=== PATIENT | female | born 2000 | race Caucasian/White ===

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

== ENCOUNTER 2023-12-31 15:31 | Outpatient (REF) | payer MEDICAID, SELFPAY ==
[2024-01-01 04:23] LABS: HIV AB/AG Nonreactive (Nonreactive); HIV Num 1 0.05 S/CO (0.00-0.99); ~Hepatitis C Antibody Nonreactive (Nonreactive)
[2024-01-03 22:29] LABS: RPR Rapid Plasma Reagin NON-REACTIVE (NON-REACTIVE)
== END 2023-12-31 15:32 | disposition home or self-care (01) ==
LOC: HO.HHCL 15:31
PROVIDERS: Visit Provider Student in an Organized Health Care Education/Training Program
DX: Z20.2 Contact with and (suspected) exposure to infections with a predominantly sexual mode of transmission (principal)
CPT/HCPCS: 36415; 86592; 86803; 87389

== ENCOUNTER 2024-01-18 16:21 | Outpatient (REF) | payer MEDICAID, SELFPAY ==
[2024-01-18 18:55] LABS: TSH reflex Free T4 1.55 uIU/mL (0.32-4.0)
== END 2024-01-18 16:22 | disposition home or self-care (01) ==
LOC: HO.HHCL 16:21
PROVIDERS: Visit Provider Nurse Practitioner Family
DX: E03.8 Other specified hypothyroidism (principal)
CPT/HCPCS: 36415; 84443

== ENCOUNTER 2024-02-06 16:33 | Outpatient (REF) | payer MEDICAID, SELFPAY ==
[2024-02-07 01:56] LABS: CT PCR DETECTED (Not Detect.); NG PCR NOT DETECTED (Not Detect.)
[2024-02-07 10:02] LABS: Bacterial Vaginosis PCR POSITIVE (Negative); Candida Group PCR DETECTED (Not Detect); Candida glab krusei PCR NOT DETECTED (Not Detect); Trichomonas vaginalis PCR NOT DETECTED (Not Detect)
== END 2024-02-06 16:34 | disposition home or self-care (01) ==
LOC: HO.HHCLNP 16:33
PROVIDERS: Visit Provider Internal Medicine
DX: R10.9 Unspecified abdominal pain (principal)
CPT/HCPCS: 0352U; 87491; 87591

== ENCOUNTER 2024-02-20 20:38 | Emergency (ER) | payer MEDICAID, SELFPAY ==
--- NOTE | ~2024-02-20 | US_ITS ---
EXAMINATION: US OBSTETRICAL ULTRASOUND CLINICAL INFORMATION: 1.5 month . Pain. COMPARISON: None available. TECHNIQUE: Transabdominal grayscale, and M-mode interrogation of the pelvis. FINDINGS: A single intrauterine gestation is identified. No subchorionic fluid collections noted. The gestational sac, yolk sac and pole are identified. M-mode interrogation demonstrates heart rate of 156 bpm. [place]-rump length measurement is 0.96 cm (7 week 1 day). The left ovary measures 2.1 cm x 1.8 cm x 1.5 cm and is normal in appearance. The right ovary measures 3.27 x 2.0 cm x 1.8 cm and is normal in appearance on grayscale sonographic evaluation. No suspicious free intraperitoneal fluid collections noted. US/US OB <= 14 weeks fetus IMPRESSION: Single live intrauterine gestation. Sonographic estimated gestational age 7 week 1 day. DAVID 10/08/2024. Electronically signed by: Zana Gerber MD 02/21/2024 03:42 AM MICHAEL
[2024-02-20 20:45] VITALS: BP 103/59; PULSE 80; O2SAT 100
[2024-02-20 21:44] VITALS: BP 111/48; PULSE 96; RESP 18; TEMP 37.2; O2SAT 97; BMI 19.0
[2024-02-20 22:12] LABS: MANUAL DIFF FLAG NO
[2024-02-20 22:13] LABS: Basophils Percent Auto 0.4 % (0-2); Eosinophils Absolute Auto 0.1 X10*3/uL (0.0-0.4); Eosinophils Percent Auto 1.5 % (0-4); Hematocrit 33.9 % (37.0-47.0); Hemoglobin 11.9 g/dl (12.0-16.0); Imm Gran Abs Auto 0.02 X10*3/uL (0.00-0.03); Imm Gran Pct Auto 0.3 % (0.0-0.4); Lymphocytes Absolute Auto 2.1 X10*3/uL (1.2-4.9); Lymphocytes Percent Auto 28.1 % (20-40); Mean Corpuscular HGB Conc 35.1 g/dl (31.0-35.0); Mean Corpuscular Hemoglobin 30.4 pg (27.0-33.0); Mean Corpuscular Volume 86.7 fL (80.0-98.0); Mean Platelet Volume 9.7 fL (9.4-12.3); Monocytes Absolute Auto 0.7 X10*3/uL (0.1-1.2); Monocytes Percent Auto 9.4 % (2-11); Neutrophils Absolute Auto 4.5 x10*3/uL (2.0-8.3); Neutrophils Percent Auto 60.3 % (45-73); Platelet Count 204 X10*3/uL (160-400); Red Blood Count 3.91 X10*6/uL (4.20-5.50); Red Cell Distribution Width 12.4 % (11.0-16.0); White Blood Count 7.4 X10*3/uL (4.8-10.8)
[2024-02-20 22:36] LABS: Alanine Aminotransferase 9 U/L (0-31); Albumin Level 4.2 g/dL (3.5-5.0); Alkaline Phosphatase 57 U/L (39-117); Anion Gap 11 (12-20); Aspartate Amino Transferase 25 U/L (5-31); Bilirubin Total 0.2 mg/dL (0.0-1.0); Blood Urea Nitrogen 6 mg/dL (9-16); Calcium 9.9 mg/dL (8.4-10.2); Carbon Dioxide 27 mmol/L (22-29); Chloride 105 mmol/L (96-108); Creatinine Clr Calc Pharmacy 104.3; Estimated Glomerular Filt Rate > 60; Glucose Random 98 mg/dL (60-115); Potassium 3.8 mmol/L (3.3-5.1); Sodium 139 mmol/L (135-145)
[2024-02-20 22:52] LABS: HCG Quantitative 90445 mIU/mL
[2024-02-21 00:31] VITALS: BP 113/61; PULSE 77; RESP 16; TEMP 36.9; O2SAT 100
--- NOTE | 2024-02-21 00:56 | PC.NURSE ---
foreign language interpreter at bedside. pt a&ox4, respirations even and unlabored. pt reporting she is 1 month and is requesting an , pt states she does not want this baby. at this time pt is also reporting she would like help , pt states she is depressed and would like to speak to care team for help with the depression. pt denies si/hi at this time.
--- NOTE | 2024-02-21 01:33 | ED_ITS ---
HPI - General Adult General Chief complaint: General Medical Stated complaint: anxiety Time Seen by Provider: 02/21/24 00:55 Source: patient, old records reviewed and interpreter for the deaf Mode of arrival: EMS Limitations: no limitations History of Present Illness ED Provider: BELEM ERICKSON narrative: 23 yo female states she is 1.5 months but plans to terminate is here with multiple vague symptoms such as anxiety, dyspnea, fatigue, hot flashes and some lower abdominal pain but no syncope, no SI, no bleeding. She states she is in crisis cannot sleep due to anxiety. She states she takes benadryl but it does not help. She states she needs therapy SRIKANTH. complaint: crisis, anxiety, abdominal pain, dyspnea Onset (ago): week(s) (1) Location: abdomen Radiation: non-radiation Severity: mild Quality: aching Pain Consistency: intermittent Relieving factors: none Exacerbating factors: none Associated symptoms: other (anxiety, depression, fatigue, hot flashes) Treatments prior to arrival: none Related Data Previous Rx's ?Medication ?Instructions ?Recorded acetaminophen 325 mg tablet 650 mg (2 x 325 mg) PO Q6H PRN 06/15/20 Headache/Pain Mild Scale (1-3) #60 tabs benztropine 1 mg tablet 1 mg PO BID PRN Extrapyramidal 06/15/20 Effects #60 tabs ibuprofen 400 mg tablet 400 mg PO Q12H PRN pain #60 tabs 06/15/20 lamotrigine 100 mg tablet 100 mg PO BEDTIME #30 tabs 06/15/20 levothyroxine 25 mcg tablet 25 mcg PO DAILY #30 tabs 06/15/20 lorazepam 1 mg tablet 1 mg PO BID PRN Anxiety #60 tabs 06/15/20 melatonin 3 mg tablet 3 mg PO BEDTIME PRN Sleep #30 tabs 06/15/20 multivitamin with folic acid 400 1 tab PO DAILY #30 tabs 06/15/20 mcg tablet (Tab-A-Breann) nicotine (polacrilex) 2 mg gum 4 mg buccal Q2H PRN Nicotine 06/15/20 Cravings #60 ea trazodone 50 mg tablet 50 mg PO BEDTIME PRN Insomnia #30 06/15/20 tabs aripiprazole lauroxil 441 mg/1.6 441 mg (1.6 mL) IM QMONTH #1.6 mL 07/14/20 mL suspension, ext.rel. IM syringe (Aristada) Allergies Allergy/AdvReac Type Severity Reaction Status Date / Time haloperidol [From Haldol] AdvReac Severe dystonia Verified 02/20/24 22:01 Review of Systems 2 Review of Systems: Constitutional : No Weight loss, No Fever, No Chills ENT/Mouth : No sore throat Eyes: No Swelling, No Redness Cardiovascular : No Chest Pain, No SOB, NoEdema Respiratory : No Cough, No Sputum, No Wheezing Gastrointestinal : no Nausea, no Vomiting, no Diarrhea, positive abdominal Pain, No Hematochezia, No Melena Genitourinary : No Dysuria, No Urinary Frequency, No Hematuria, No Urgency , no bleeding Musculoskeletal : No joint pain, No Myalgias, No Joint Swelling Skin : No Skin Lesions, No rash Neuro : No Weakness, No Numbness, No Dizziness, No Headache Psych : pos Anxiety/Panic, pos Depression All other systems reviewed and are negative. [facility] Past Medical History Attestation statement: The following information was validated with the patient. Source: old records reviewed Medical History PTSD (post-traumatic stress disorder) Schizoaffective disorder Hypothyroidism Severe bipolar disorder with psychotic features, mood-congruent Noncompliance w/medication treatment due to intermit use of medication Cannabis abuse with psychotic disorder Social History Social History Household Members: Family and None Housing: Homeless Do you presently have visiting nurse or other home services: No Unable to assess alcohol history related to: Unknown Alcohol intake: never Comment: Pt reports had bowel movement Cigarette Packs Per Day: 0.5 Cigarettes Per Day: 10.0 Years Smoked: unable to identify Smoked in Last 30 Days: No Second Hand Smoke Exposure: Yes Use of substances other than those prescribed or required for medical reasons: No Substance Use Type: Marijuana Advance Directives: No Advance Directives Information Provided: Yes Do you have a plan to hurt others: No Plan Patient : Yes service: No Sexual orientation: Straight/Heterosexual Physical Exam ED Vital Signs: Vital Signs - 24 hr 02/20/24 21:44 02/21/24 00:31 Temperature 99.0 F 98.4 F Pulse Rate 96 77 Respiratory Rate 18 16 Blood Pressure 111/48 L 113/61 Pulse Oximetry 97 100 Oxygen Delivery Method Room Air Room Air BMI result Body Mass Index 19.0 Appearance: Alert. Oriented X3. No acute distress. Eyes: Pupils equal, round and reactive to light. ENT: Pharynx normal. Neck: Normal inspection. Neck supple. CVS: Normal heart rate and rhythm. Pulses normal. Respiratory: No respiratory distress. Breath sounds normal. Abdomen: Soft and nontender. Abdomen seems more gravid than 1.5months Skin: Skin warm and dry. Normal skin color. Normal skin turgor. Extremities: No lower extremity edema. No calf ttp Neuro: Oriented X 3. No motor deficit. No sensory deficit. Medical Decision Making Medical Decision Making [facility] Narrative: 23 yo female with PMH of anxiety/depression here asking for crisis due to severe anxiety and needs therapy she also c/o fatigue, COUCH and some low abdominal pain at this time will need labs, UA, US to evaluate she has not had one yet. She has no CP or SOB at rest and no signs of volume overload doubt VTE or CHF Differential Diagnosis Differential Diagnoses: The differential diagnosis associated with the presentation includes anxiety, depression, anemia, UTI, ectopic Admission/Observation Consideration of admission/observation: Escalation of care including admission/observation considered refusing to give urine per RN physician observation started at 348am pending CARE team Lab Data [facility] Lab Attestation statement: I reviewed the patient's lab results. 02/20/24 22:08 02/20/24 22:08 Labs: Lab Results 02/20/24 Range/Units 22:08 WBC 7.4 (4.8-10.8) X10*3/uL RBC 3.91 L (4.20-5.50) X10*6/uL Hgb 11.9 L (12.0-16.0) g/dl Hct 33.9 L (37.0-47.0) % MCV 86.7 (80.0-98.0) fL MCH 30.4 (27.0-33.0) pg MCHC 35.1 H (31.0-35.0) g/dl RDW 12.4 (11.0-16.0) % Plt Count 204 (160-400) X10*3/uL MPV 9.7 (9.4-12.3) fL Immature Gran % (Auto) 0.3 (0.0-0.4) % Neut % (Auto) 60.3 (45-73) % Lymph % (Auto) 28.1 (20-40) % [place] % (Auto) 9.4 (2-11) % Eos % (Auto) 1.5 (0-4) % Baso % (Auto) 0.4 (0-2) % Lymph # (Auto) 2.1 (1.2-4.9) X10*3/uL [place] # (Auto) 0.7 (0.1-1.2) X10*3/uL Eos # (Auto) 0.1 (0.0-0.4) X10*3/uL Baso # (Auto) 0.0 (0.0-0.2) X10*3/uL Abs Immat Gran (auto) 0.02 (0.00-0.03) X10*3/uL Absolute Neuts (auto) 4.5 (2.0-8.3) x10*3/uL Absolute Nucleated RBC 0.000 (0.0-0.012) X10*3/uL Nucleated RBC % (auto) 0.0 (0.0-0.2) /100WBC Sodium 139 (135-145) mmol/L Potassium 3.8 (3.3-5.1) mmol/L Chloride 105 (96-108) mmol/L Carbon Dioxide 27 (22-29) mmol/L Anion Gap 11 L (12-20) BUN 6 L (9-16) mg/dL Creatinine 0.63 (0.5-1.4) mg/dL Estim Creat Clear Calc 104.3 Estimated GFR > 60 Random Glucose 98 (60-115) mg/dL Calcium 9.9 (8.4-10.2) mg/dL Total Bilirubin 0.2 (0.0-1.0) mg/dL AST 25 (5-31) U/L ALT 9 (0-31) U/L Alkaline Phosphatase 57 (39-117) U/L Total Protein 7.0 (6.5-8.0) g/dL Albumin 4.2 (3.5-5.0) g/dL Beta HCG, Quant 01152 mIU/mL Independent Interpretation I performed an independent interpretation of an: Ultrasound (+ IUP) Radiology Impression Discussion of test interpretation with radiology: I have reviewed the radiologist's reading. External Record Review External record reviewed: Outpatient record Discharge Plan Discharge Clinical Impression: Anxiety and depression Patient Disposition: Still a Patient Instructions: Anxiety (ED) Prescriptions: No Action nicotine (polacrilex) 2 mg Gum 4 mg buccal Q2H PRN (Reason: Nicotine Cravings) Qty: 60 2RF acetaminophen 325 mg Tablet 650 mg PO Q6H PRN (Reason: Headache/Pain Mild Scale (1-3)) Qty: 60 0RF trazodone 50 mg Tablet 50 mg PO BEDTIME PRN (Reason: Insomnia) Qty: 30 0RF melatonin 3 mg Tablet 3 mg PO BEDTIME PRN (Reason: Sleep) Qty: 30 0RF ibuprofen 400 mg Tablet 400 mg PO Q12H PRN (Reason: pain) Qty: 60 0RF benztropine 1 mg Tablet 1 mg PO BID PRN (Reason: Extrapyramidal Effects) Qty: 60 0RF lamotrigine 100 mg Tablet 100 mg PO BEDTIME Qty: 30 0RF multivitamin with folic acid [Tab-A-Breann] 400 mcg Tablet 1 tab PO DAILY Qty: 30 0RF levothyroxine 25 mcg Tablet 25 mcg PO DAILY Qty: 30 0RF lorazepam 1 mg Tablet 1 mg PO BID PRN (Reason: Anxiety) Qty: 60 0RF Aristada 441 mg/1.6 mL suspension,extended rel syring 441 mg IM QMONTH Qty: 1.6 0RF Print Language: Tajik
--- NOTE | 2024-02-21 03:23 | PC.NURSE ---
pt refusing urine sample at this time, ambulatory with steady gait to bathroom. dr.currie ward.
[2024-02-21 03:52] VITALS: BP 120/57; PULSE 86; RESP 16; TEMP 36.6; O2SAT 99
[2024-02-21 06:19] VITALS: RESP 18
[2024-02-21 09:32] LABS: Appearance Urine Cloudy; Color Urine Yellow; Glucose Urine UA Negative (Negative); Leukocyte Esterase Urine Large (3+) (Negative); Nitrite Urine Negative (Negative); PH 7.5 (5.0-9.0); UMIC TRIGGER UACC YES; Urine Blood Negative (Negative); Urine Ketones Negative (Negative); Urine Protein Negative (Neg-Trace)
[2024-02-21 09:34] LABS: Bacteria Urine 1+ (None Seen); Hyaline Casts Urine 0-2 /LPF (0-2); RBC Urine 0-2 /HPF (0-2); UACC Culture Trigger YES
[2024-02-21 09:44] LABS: Amphetamine Screen Urine Not Detected (Not Detect); Barbiturates, Urine Not Detected (Not Detect); Benzodiazepines Screen Urine Not Detected (Not Detect); Buprenorphine Scr Not Detected (Not Detect); Cannabinoid Screen Urine Not Detected (Not Detect); Cocaine Screen Urine Not Detected (Not Detect); Fentanyl, urine Not Detected (Not Detect); Methadone Screen, Urine Not Detected (Not Detect); Opiate Screen Urine Not Detected (Not Detect); Oxycodone Screen Urine Not Detected (Not Detect); Phencyclidine Screen Urine Not Detected (Not Detect)
[2024-02-21] MEDS: Nicotine Polacrilex 2 MG GUM BUCCAL (10:23)
[2024-02-21 11:15] VITALS: BP 116/55; PULSE 95; RESP 13; TEMP 36.6; O2SAT 100
--- NOTE | 2024-02-21 11:25 | MHC.CARE ---
Pt is a 23 y/o, single, Belgian speaking female, who is previously unknown to the CARE Team but familiar to the inpatient psychiatric units via previous admissions.? Yesterday, pt arrived at the ED via ambulance with a complaint of worsening anxiety, dyspnea, fatigue, hot flashes and lower abdominal pain. ?Pt reported that she is in crisis and cannot sleep due to anxiety. Pt is requesting therapy. ??Pt has reported that she is 1.5 months and plans to terminate the .? Pt has been medically cleared and is being seen by the CARE Team on a consult per the ED Provider.? Pt has a hx of inpt hospitalizations, trauma, and marijuana use.? Past documented hx of Cannabis abuse with psychotic disorder, Unspecified psychosis not due to a substance or known physiological condition and Bipolar disorder.? No known hx of suicide attempts.?? Pt is seen with the assistance of a Belgian speaking medical technologist. Pt is alert and oriented x4, is dressed in hospital attire, appears her stated age, and her grooming is unremarkable.? She is engaged in the assessment and is seeking help for her anxiety, depression, and unwanted . Pt denies HI, SI, , self-harm and AVH. Her thought process appears linear and organized.? Insight, judgement, memory, concentration and impulse control appear unimpaired at this time. Pt reports she is seeking assistance with terminating her unwanted and came to this facility, in part to have the terminated.? Pt was advised this facility cannot facilitate that butv [facility]. Pt reports worsening anxiety due to not smoking and is requesting nicotine gum.? Pt was advised her nurse is working towards that for her.? Pt reports anxiety related to her unwanted as well as some depression related to that as well.? Pt expresses a need and desire to engage in therapy.? Pt has been advised that a referral will be placed for [facility]. The [facility] was explained to pt as well as the services they provide.? Pt was encouraged to utilize them for outpatient support and in lieu of utilizing the ED in non-emergent situations.
--- NOTE | 2024-02-21 12:24 | MHC.CARE ---
Referral to [facility] for therapy is complete.
== END 2024-02-21 11:16 | disposition home or self-care (01) ==
PROVIDERS: Student in an Organized Health Care Education/Training Program; Emergency Provider Emergency Medicine
DX: O99.341 Other mental disorders complicating pregnancy, first trimester (principal); F41.8 Other specified anxiety disorders; Z3A.01 Less than 8 weeks gestation of pregnancy
CPT/HCPCS: 36415; 76801; 80053; 80307; 81001; 84702; 85025; 87086; 99284